=== PATIENT | male | born 1990 | race Caucasian/White ===

== ENCOUNTER 2018-09-27 01:08 | Emergency (ER) | payer OTHER, SELFPAY ==
[2018-09-27] MEDS ORDERED: KETOROLAC 30 MG/ML INJ ONE (01:56)
[2018-09-27] MEDS ORDERED: CYCLOBENZAPRINE 10 MG TAB ONE (01:56)
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
[2018-09-27 04:04] VITALS: TEMP 98.6
[2018-09-27 04:06] VITALS: BP 153/82; O2SAT 99
== END 2018-09-27 02:51 | disposition home or self-care (01) ==
LOC: ER 01:08
DX: M54.5 Low back pain (principal); V89.2XXA Person injured in unspecified motor-vehicle accident, traffic, initial encounter
CPT/HCPCS: 36415; 96372; 99284

== ENCOUNTER 2018-10-22 01:19 | Emergency (ER) | payer OTHER, SELFPAY ==
[2018-10-22] MEDS ORDERED: METOCLOPRAMIDE 10 MG/2mL INJ ONE (02:17)
[2018-10-22] MEDS ORDERED: DIPHENHYDRAMINE 50 MG/ML VIAL ONE (02:17)
[2018-10-22 02:23] LABS: Absolute Lymphocytes (CBC) 1.6 K/uL (0.7-4.9); Absolute Monocytes 0.7 K/uL (0.1-1.3); Absolute Neutrophil 9.4 K/uL (1.8-8.0); Basophils % 0.5 % (0-1.3); Eosinophils % 1.1 % (0-4.4); Hematocrit 46.3 % (39.6-49.0); Lymphocytes % 13.7 % (15.3-44.8); MPV 8.8 fL (7.6-11.3); Monocytes % 6.2 % (3.3-12.3); RBC Red Blood Cell Count 5.55 M/uL (4.33-5.43)
--- NOTE | 2018-10-22 03:08 | ER ---
Nurse's Notes [facility] Name: Gary Ruiz Age: 28 yrs Sex: Male : 1990 Arrival Date: 10/22/2018 Time: :19 Bed 5 Private MD: Diagnosis: Migraine Presentation: 10/22 01:26 Presenting complaint: Patient states: headache and vomiting since approx 1800 aa1 yesterday. Transition of care: patient was not received from another setting of care. Onset of symptoms was October 21, 2018 at 18:00. Risk Assessment: Do you want to hurt yourself or someone else? Patient reports no desire to harm self or others. Initial Sepsis Screen: Does the patient meet any 2 criteria? No. Patient's initial sepsis screen is negative. Does the patient have a suspected source of infection? No. Patient's initial sepsis screen is negative. Care prior to arrival: None. 01:26 Method Of Arrival: Ambulatory aa1 01:26 Acuity: COOPER 3 aa1 Triage Assessment: 01:27 General: Appears in no apparent distress. comfortable, Behavior is calm, cooperative, aa1 appropriate for age. 02:15 Headache History: The patient has had previous headaches and this one is similar to ed1 previous episodes, and this one is more severe than previous episodes. Pain: Also complains of nausea. Historical: - Allergies: 01:27 Trazodone; aa1 01:27 Adderall; aa1 - Home Meds: 01:27 None [Active]; aa1 - PMHx: 01:27 Anxiety; Bipolar disorder; lower back injury; Schizophrenia; aa1 - PSHx: 01:27 Appendectomy; aa1 - Immunization history:: Flu vaccine is up to date. - Social history:: Smoking status: Patient/guardian denies using tobacco. - Ebola Screening: : No symptoms or risks identified at this time. Screenin:15 Abuse screen: Denies threats or abuse. Denies injuries from another. Nutritional ed1 screening: No deficits noted. Tuberculosis screening: No symptoms or risk factors identified. Fall Risk None identified. Assessment: 02:15 General: Appears uncomfortable, Behavior is calm, cooperative. Pain: Complains of pain ed1 in forehead Pain does not radiate. Pain currently is 8 out of 10 on a pain scale. Quality of pain is described as throbbing, Pain began 1 day ago. Is continuous. Neuro: Level of Consciousness is awake, alert, obeys commands, Oriented to person, place, time, situation, Reports headache in entire frontal area. Cardiovascular: Denies chest pain, Heart tones S1 S2 present. Respiratory: Airway is patent Respiratory effort is even, unlabored, Respiratory pattern is regular, symmetrical, Breath sounds are clear bilaterally. GI: Reports nausea, Patient currently denies diarrhea, vomiting. : No signs and/or symptoms were reported regarding the genitourinary system. EENT: No signs and/or symptoms were reported regarding the EENT system. Derm: Skin is pink, warm \T\ dry. Musculoskeletal: Circulation, motion, and sensation intact. 03:20 Reassessment: Patient appears in no apparent distress at this time. Patient and/or ed1 family updated on plan of care and expected duration. Pain level reassessed. Patient is alert, oriented x 3, equal unlabored respirations, skin warm/dry/pink. Patient states feeling better. Patient states symptoms have improved. Vital Signs: 01:27 BP 141 / 83; Pulse 84; Resp 18; Temp 97.9; Pulse Ox 100% on R/A; Weight 63.5 kg; Height aa1 6 ft. 0 in. (182.88 cm); Pain 8/10; 03:20 BP 126 / 81; Pulse 80; Resp 17; Pulse Ox 100% on R/A; Pain 6/10; ed1 01:27 Body Mass Index 18.99 (63.50 kg, 182.88 cm) aa1 ED Course: 01:19 Patient arrived in ED. ds1 01:27 Triage completed. aa1 01:27 Arm band placed on right wrist. aa1 01:42 Gabriel Grimm PA is PHCP. jr8 01:42 Evelio Girard MD is Attending Physician. jr8 02:05 Quiana Archibald RN is Primary Nurse. ed1 02:15 Patient has correct armband on for positive identification. Placed in gown. Bed in low ed1 position. Call light in reach. Side rails up X2. Pulse ox on. NIBP on. 02:15 Initial lab(s) drawn, by me, sent to lab. Inserted saline lock: 20 gauge in right ed1 antecubital area, using aseptic technique. Blood collected. 02:[address] via wheelchair. kw1 02:45 CT Head Brain wo Cont In Process Unspecified. EDMS 02:45 CT completed. Patient tolerated procedure well. Patient moved back from CT. kw1 03:20 No provider procedures requiring assistance completed. IV discontinued, intact, ed1 bleeding controlled, No redness/swelling at site. Pressure dressing applied. Administered Medications: 02:18 Drug: Reglan 10 mg Route: IVP; Site: right antecubital; ed1 03:20 Follow up: Response: No adverse reaction; Nausea is decreased ed1 02:18 Drug: Benadryl 25 mg Route: IVP; Site: right antecubital; ed1 03:20 Follow up: Response: No adverse reaction; Marked relief of symptoms ed1 Outcome: 03:08 Discharge ordered by MD. palacios 03:20 Discharged to home ambulatory, with friend. ed1 03:20 Condition: good 03:20 Discharge instructions given to patient, Instructed on discharge instructions, follow up and referral plans. Demonstrated understanding of instructions, follow-up care. 03:21 Patient left the ED. ed1 Signatures: Dispatcher [employer] Tori Bui, RN RN aa1 Lesa Saini ds1 Quiana Archibald RN RN ed1 Gabriel Grimm PA PA jr8 Blanca Ku kw1
--- NOTE | 2018-10-22 03:08 | EDPHYS ---
Physician Documentation [facility] Name: Gary Ruiz Age: 28 yrs Sex: Male : 1990 Arrival Date: 10/22/2018 Time: :19 Bed 5 Private MD: ED Physician Evelio Girard HPI: 10/22 01:57 This 28 yrs old Male presents to ER via Ambulatory with complaints of jr8 Headache, Vomiting. 01:57 The patient complains of pain to the forehead. The patient describes the headache as jr8 throbbing. Onset: The symptoms/episode began/occurred acutely, today. Associated signs and symptoms: Pertinent positives: nausea, blurred vision, vomiting. Severity of symptoms: At its worst the pain was moderate, in the emergency department the pain is unchanged. Headache History: Denies prior headaches. The symptoms are alleviated by nothing. the symptoms are aggravated by nothing. The patient has not experienced similar symptoms in the past. The patient has not recently seen a physician. Historical: - Allergies: 01:27 Trazodone; aa1 01:27 Adderall; aa1 - Home Meds: 01:27 None [Active]; aa1 - PMHx: 01:27 Anxiety; Bipolar disorder; lower back injury; Schizophrenia; aa1 - PSHx: 01:27 Appendectomy; aa1 - Immunization history:: Flu vaccine is up to date. - Social history:: Smoking status: Patient/guardian denies using tobacco. - Ebola Screening: : No symptoms or risks identified at this time. ROS: 01:57 Eyes: Negative for injury, pain, redness, and discharge, ENT: Negative for injury, jr8 pain, and discharge, Neck: Negative for injury, pain, and swelling, Cardiovascular: Negative for chest pain, palpitations, and edema, Respiratory: Negative for shortness of breath, cough, wheezing, and pleuritic chest pain, Abdomen/GI: Negative for abdominal pain, nausea, vomiting, diarrhea, and constipation, Back: Negative for injury and pain, MS/Extremity: Negative for injury and deformity, Skin: Negative for injury, rash, and discoloration. 01:57 Neuro: Positive for headache, Negative for altered mental status, dizziness, gait disturbance, hearing loss, loss of consciousness, numbness, seizure activity, speech changes, syncope, near syncope, tingling, tinnitus, tremor, visual changes, weakness. Exam: 01:58 Eyes: Pupils equal round and reactive to light, extra-ocular motions intact. Lids and jr8 lashes normal. Conjunctiva and sclera are non-icteric and not injected. Cornea within normal limits. Periorbital areas with no swelling, redness, or edema. ENT: Nares patent. No nasal discharge, no septal abnormalities noted. Tympanic membranes are normal and external auditory canals are clear. Oropharynx with no redness, swelling, or masses, exudates, or evidence of obstruction, uvula midline. Mucous membranes moist. Neck: Trachea midline, no thyromegaly or masses palpated, and no cervical lymphadenopathy. Supple, full range of motion without nuchal rigidity, or vertebral point tenderness. No Meningismus. Cardiovascular: Regular rate and rhythm with a normal S1 and S2. No gallops, murmurs, or rubs. Normal PMI, no JVD. No pulse deficits. Respiratory: Lungs have equal breath sounds bilaterally, clear to auscultation and percussion. No rales, rhonchi or wheezes noted. No increased work of breathing, no retractions or nasal flaring. Abdomen/GI: Soft, non-tender, with normal bowel sounds. No distension or tympany. No guarding or rebound. No evidence of tenderness throughout. Back: No spinal tenderness. No costovertebral tenderness. Full range of motion. Skin: Warm, dry with normal turgor. Normal color with no rashes, no lesions, and no evidence of cellulitis. MS/ Extremity: Pulses equal, no cyanosis. Neurovascular intact. Full, normal range of motion. Neuro: Awake and alert, GCS 15, oriented to person, place, time, and situation. Cranial nerves II-XII grossly intact. Motor strength 5/5 in all extremities. Sensory grossly intact. Cerebellar exam normal. Normal gait. Vital Signs: 01:27 BP 141 / 83; Pulse 84; Resp 18; Temp 97.9; Pulse Ox 100% on R/A; Weight 63.5 kg; Height aa1 6 ft. 0 in. (182.88 cm); Pain 8/10; 03:20 BP 126 / 81; Pulse 80; Resp 17; Pulse Ox 100% on R/A; Pain 6/10; ed1 01:27 Body Mass Index 18.99 (63.50 kg, 182.88 cm) aa1 MDM: 01:42 Patient medically screened. jr8 03:07 Data reviewed: vital signs, nurses notes, lab test result(s), radiologic studies, CT jr8 scan. Data interpreted: Pulse oximetry: on room air is 100 %. Interpretation: normal. Counseling: I had a detailed discussion with the patient and/or guardian regarding: the historical points, exam findings, and any diagnostic results supporting the discharge/admit diagnosis, lab results, radiology results, the need for outpatient follow up, a family practitioner, to return to the emergency department if symptoms worsen or persist or if there are any questions or concerns that arise at home. Response to treatment: the patient's symptoms have markedly improved after treatment. 10/22 01:58 Order name: Basic Metabolic Panel; Complete Time: 02:32 jr8 10/22 01:58 Order name: CBC with Diff; Complete Time: 02:26 jr8 10/22 01:57 Order name: CT Head Brain wo Cont jr8 10/22 01:57 Order name: IV; Complete Time: 02:05 jr8 Administered Medications: 02:18 Drug: Reglan 10 mg Route: IVP; Site: right antecubital; ed1 03:20 Follow up: Response: No adverse reaction; Nausea is decreased ed1 02:18 Drug: Benadryl 25 mg Route: IVP; Site: right antecubital; ed1 03:20 Follow up: Response: No adverse reaction; Marked relief of symptoms ed1 Disposition: 03:30 Co-signature as Attending Physician, Evelio Girard MD I agree with the assessment and kdr plan of care. Disposition: 10/22/18 03:08 Discharged to Home. Impression: Migraine. - Condition is Stable. - Discharge Instructions: Migraine Headache. - Medication Reconciliation Form, Thank You Letter, Antibiotic Education, Prescription Opioid Use form. - Follow up: Private Physician; When: 2 - 3 days; Reason: Recheck today's complaints, Continuance of care, Re-evaluation by your physician. - Problem is new. - Symptoms have improved. Signatures: Dispatcher [employer] EDMS Tori Wing RN RN aa1 Evelio Girard MD MD kdr Riggs, Erika, RN RN ed1 Gabriel Grimm PA PA jr8 Corrections: (The following items were deleted from the chart) 03:21 03:08 10/22/2018 03:08 Discharged to Home. Impression: Migraine. Condition is Stable. ed1 Forms are Medication Reconciliation Form, Thank You Letter, Antibiotic Education, Prescription Opioid Use. Follow up: Private Physician; When: 2 - 3 days; Reason: Recheck today's complaints, Continuance of care, Re-evaluation by your physician. Problem is new. Symptoms have improved. jr8
[2018-10-22 03:48] VITALS: TEMP 97.9; O2SAT 100
[2018-10-22 03:50] VITALS: BP 126/81
--- NOTE | 2018-10-23 20:41 | RAD REPORT ---
EXAM DESCRIPTION: CT - Head Brain Wo Cont - 10/22/2018 3:03 am CLINICAL HISTORY: The patient is 28 years old and is Male; HEADACHE TECHNIQUE: Axial computed tomography images of the head/brain and cervical spine without intravenous contrast. S agittal and coronal reformatted images were created and reviewed. This CT exam was performed using on e or more of the following dose reduction techniques: Automated exposure control, adjustment of the m A and/or kV according to patient size, and/or use of iterative reconstruction technique. COMPARISON: No relevant prior studies available. FINDINGS: Brain: Unremarkable. The aguilar white matter differentiation is preserved. No hemorrhage. No significant white matter disease. No edema. No extra-axial fluid collections. Ventricles: Unremarkable. No ventriculomegaly. Bone/joints: No acute fracture. Soft tissues: Unremarkable. Sinuses: Unremarkable as visualized. No acute sinusitis. Mastoid air cells: Unremarkable as visualized. No mastoid effusion. IMPRESSION: No acute intracranial abnormality. Electronically signed by Loraine Olsen MD 10/22/2018 2:53 AM SENIOR ANALYTIC CONSULTANT Due to temporary technical issues with the PACS/Fluency reporting system, reports are being signed by the in house radiologist as a courtesy to ensure prompt reporting. The interpreting radiologist is f ully responsible for the content of the report.
== END 2018-10-22 03:21 | disposition home or self-care (01) ==
LOC: ER 01:19
DX: G43.909 Migraine, unspecified, not intractable, without status migrainosus (principal); Z88.5 Allergy status to narcotic agent; Z88.8 Allergy status to other drugs, medicaments and biological substances
CPT/HCPCS: 36415; 70450; 80048; 85025; 96374; 96375; 99284; J2765

== ENCOUNTER 2019-01-02 01:47 | Emergency (ER) | payer OTHER ==
--- NOTE | 2019-01-02 02:55 | EDPHYS ---
Physician Documentation [facility] Name: Gary Ruiz Age: 28 yrs Sex: Male : 1990 Arrival Date: 01/02/2019 Time: 01:56 Bed 16 Private MD: ED Physician Refugio Hardin HPI: 01/02 02:02 This 28 yrs old Male presents to ER via Wheelchair with complaints of Foot jmm Injury. 02:02 The patient presents with an injury, a puncture wound. Onset: The symptoms/episode jmm began/occurred acutely, today. Modifying factors: The symptoms are alleviated by elevating leg, the symptoms are aggravated by weight bearing. Patient hyperdorsiflexed his right foot and ankle walking up a hill. denies other injury. Historical: - Allergies: 02:00 Adderall; lp1 02:00 Trazodone; lp1 - Home Meds: 02:00 None [Active]; lp1 - PMHx: 02:00 Anxiety; Bipolar disorder; lower back injury; Schizophrenia; lp1 - PSHx: 02:00 Appendectomy; lp1 - Immunization history:: Adult Immunizations up to date. - Social history:: Smoking status: Patient/guardian denies using tobacco. - Ebola Screening: : No symptoms or risks identified at this time. ROS: 02:02 Constitutional: Negative for fever, chills, and weight loss, Eyes: Negative for injury, jmm pain, redness, and discharge, Cardiovascular: Negative for chest pain, palpitations, and edema, Respiratory: Negative for shortness of breath, cough, wheezing, and pleuritic chest pain. 02:02 MS/extremity: Positive for injury or acute deformity, pain. 02:02 All other systems are negative. Exam: 02:02 Constitutional: This is a well developed, well nourished patient who is awake, alert, jmm and in no acute distress. Head/Face: atraumatic. Eyes: EOMI, no conjunctival erythema appreciated ENT: Moist Mucus Membranes Neck: Trachea midline, Supple Chest/axilla: Normal chest wall appearance and motion. Cardiovascular: Regular rate and rhythm. No edema appreciated Respiratory: Normal respirations, no respiratory distress appreciated Abdomen/GI: Non distended, soft Skin: General appearance color normal 02:02 Musculoskeletal/extremity: pain on palpation of the right ant ankle, full dorsalis pulse, compartments are soft, NVI. 02:02 Skin: Appearance: Color: normal in color. 02:02 Neuro: Orientation: is normal, Mentation: is normal, Memory: is normal. 02:02 Psych: Behavior/mood is pleasant, cooperative. Vital Signs: 01:59 BP 146 / 82; Pulse 81; Resp 16; Temp 97.9(O); Pulse Ox 97% on R/A; Weight 63.5 kg; lp1 Height 6 ft. 0 in. (182.88 cm); Pain 7/10; 03:22 BP 127 / 88; Pulse 86; Resp 16; Pulse Ox 99% on R/A; jb4 01:59 Body Mass Index 18.99 (63.50 kg, 182.88 cm) lp1 MDM: 02:02 Patient medically screened. [facility] 02:54 Data reviewed: vital signs, nurses notes. Counseling: I had a detailed discussion with [facility] the patient and/or guardian regarding: the historical points, exam findings, and any diagnostic results supporting the discharge/admit diagnosis, radiology results, the need for outpatient follow up, to return to the emergency department if symptoms worsen or persist or if there are any questions or concerns that arise at home. ED course: Patient is advised to follow up with ortho for reevaluation. imaging studies do not appear to show fracture. . 01/02 02:03 Order name: Foot Right 3 View XRAY [facility] 01/02 02:03 Order name: Ankle Right 3 View XRAY [facility] 01/02 02:41 Order name: Dayne wrap-joint; Complete Time: 03:21 [facility] 01/02 02:41 Order name: Crutches; Complete Time: 03:21 [facility] Administered Medications: No medications were administered Disposition: 01/02/19 02:55 Discharged to Home. Impression: Other sprain of foot, Sprain of ankle. - Condition is Stable. - Discharge Instructions: Ankle Sprain. - Prescriptions for Ibuprofen 800 mg Oral Tablet - take 1 tablet by ORAL route every 8 hours As needed take with food; 30 tablet. - Medication Reconciliation Form, Thank You Letter, Antibiotic Education, Prescription Opioid Use, Work release form form. - Follow up: Govind Galindo MD; When: 2 - 3 days; Reason: Recheck today's complaints, Continuance of care, Re-evaluation by your physician. Addendum: 01/03/2019 07:23 Co-signature as Attending Physician, Refugio Hardin MD I agree with the assessment and t w4 plan of care. Signatures: Dispatcher [employer] EDMS Lance Cruz, WESLY JARRELL [facility] Connie Garcia, RN RN lp1 Bernardino Leong RN RN jb4 Refugio Hardin MD MD tw4 Corrections: (The following items were deleted from the chart) 01/02 02:55 02:55 01/02/2019 02:55 Discharged to Home. Impression: Other sprain of foot. Condition [facility] is Stable. Forms are Medication Reconciliation Form, Thank You Letter, Antibiotic Education, Prescription Opioid Use. Follow up: Dr. Govind Galindo; When: 2 - 3 days; Reason: Recheck today's complaints, Continuance of care, Re-evaluation by your physician. [facility] 03:24 02:55 01/02/2019 02:55 Discharged to Home. Impression: Other sprain of foot; Sprain of jb4 ankle. Condition is Stable. Forms are Medication Reconciliation Form, Thank You Letter, Antibiotic Education, Prescription Opioid Use. Follow up: Dr. Govind Galindo; When: 2 - 3 days; Reason: Recheck today's complaints, Continuance of care, Re-evaluation by your physician. [facility]
--- NOTE | 2019-01-02 02:55 | ER ---
Nurse's Notes [facility] Name: Gary Ruiz Age: 28 yrs Sex: Male : 1990 Arrival Date: 01/02/2019 Time: 01:56 Bed 16 Private MD: Diagnosis: Other sprain of foot;Sprain of ankle Presentation: 01/02 01:57 Presenting complaint: Patient states: "I stepped wrong while fishing and I think I tore lp1 a ligament in my foot"; States pain to top of right foot, unable to bear weight. Transition of care: patient was not received from another setting of care. Onset of symptoms was January 01, 2019 at 18:00. Risk Assessment: Do you want to hurt yourself or someone else? Patient reports no desire to harm self or others. Initial Sepsis Screen: Does the patient meet any 2 criteria? No. Patient's initial sepsis screen is negative. Does the patient have a suspected source of infection? No. Patient's initial sepsis screen is negative. Care prior to arrival: None. 01:57 Method Of Arrival: Wheelchair lp1 01:57 Acuity: COOPER 4 lp1 Historical: - Allergies: 02:00 Adderall; lp1 02:00 Trazodone; lp1 - Home Meds: 02:00 None [Active]; lp1 - PMHx: 02:00 Anxiety; Bipolar disorder; lower back injury; Schizophrenia; lp1 - PSHx: 02:00 Appendectomy; lp1 - Immunization history:: Adult Immunizations up to date. - Social history:: Smoking status: Patient/guardian denies using tobacco. - Ebola Screening: : No symptoms or risks identified at this time. Screenin:00 Abuse screen: Denies threats or abuse. Denies injuries from another. Nutritional lp1 screening: No deficits noted. Tuberculosis screening: No symptoms or risk factors identified. Fall Risk None identified. Assessment: 02:04 General: Appears in no apparent distress. uncomfortable, Behavior is calm, cooperative. jb4 Pain: Complains of pain in dorsum of right foot Pain radiates to arch of right foot Pain currently is 7 out of 10 on a pain scale. Quality of pain is described as stabbing, throbbing, Pain began 1 day ago. Is continuous. Neuro: Level of Consciousness is awake, alert, obeys commands, Oriented to person, place, time, situation. Cardiovascular: Patient's skin is warm and dry. Respiratory: Airway is patent Respiratory effort is even, unlabored, Respiratory pattern is regular, symmetrical. GI: No signs and/or symptoms were reported involving the gastrointestinal system. : No signs and/or symptoms were reported regarding the genitourinary system. EENT: No signs and/or symptoms were reported regarding the EENT system. Derm: Skin is intact, Skin is pink, warm \\T\\ dry. Musculoskeletal: Circulation, motion, and sensation intact. Range of motion: limited in right ankle. 03:22 Reassessment: Patient appears in no apparent distress at this time. Patient and/or jb4 family updated on plan of care and expected duration. Pain level reassessed. Patient is alert, oriented x 3, equal unlabored respirations, skin warm/dry/pink. Vital Signs: 01:59 BP 146 / 82; Pulse 81; Resp 16; Temp 97.9(O); Pulse Ox 97% on R/A; Weight 63.5 kg; lp1 Height 6 ft. 0 in. (182.88 cm); Pain 7/10; 03:22 BP 127 / 88; Pulse 86; Resp 16; Pulse Ox 99% on R/A; jb4 01:59 Body Mass Index 18.99 (63.50 kg, 182.88 cm) lp1 ED Course: 01:56 Patient arrived in ED. ds1 01:58 Lance Cruz PA is PHCP. jmm 01:58 Refugio Hardin MD is Attending Physician. jmm 01:59 Triage completed. lp1 01:59 Arm band placed on left wrist. lp1 02:01 Patient has correct armband on for positive identification. lp1 02:03 Bernardino Leong, RN is Primary Nurse. jb4 02:23 X-ray completed. Portable x-ray completed in exam room. Patient tolerated procedure kw well. 02:23 Foot Right 3 View XRAY In Process Unspecified. EDMS 02:23 Ankle Right 3 View XRAY In Process Unspecified. EDMS 02:55 Govind Galindo MD is Referral Physician. jm 03:22 No provider procedures requiring assistance completed. Patient did not have IV access jb4 during this emergency room visit. Crutch training done. Dayne wrap to right ankle. Administered Medications: No medications were administered Outcome: 02:55 Discharge ordered by . sunil 03:22 Discharged to home ambulatory, with crutches, with family. jb4 03:22 Condition: stable 03:22 Discharge instructions given to patient, family, Instructed on discharge instructions, follow up and referral plans. medication usage, Demonstrated understanding of instructions, follow-up care, medications, Prescriptions given X 1. 03:24 Patient left the ED. jb4 Signatures: Dispatcher [employer] EDMS Lance Cruz PA PA jmm Sanford, Demi ds1 Giovanna Dorsey Laura, RN RN lp1 Bernardino Leong, RN RN jb4
[2019-01-02 03:29] VITALS: TEMP 97.9
[2019-01-02 03:30] VITALS: BP 127/88; O2SAT 99
--- NOTE | 2019-01-02 07:07 | RAD REPORT ---
EXAM DESCRIPTION: RAD - Ankle Right 3 View - 01/02/2019 2:38 am CLINICAL HISTORY: Right foot and ankle pain, twisting injury COMPARISON: None. FINDINGS: No fracture identified. There is no dislocation or periosteal reaction. On the oblique vie w there is focal lucency in the medial tip of the fibula. This is potentially from a ligamentous avul alethea or tear. Ankle mortise is normal. No joint effusion seen. No joint space narrowing. No significa nt soft tissue swelling at the ankle joint. IMPRESSION: No fracture identified. A small lucency inferior tip of the fibula may be from ligament tear/avulsion.
--- NOTE | 2019-01-02 07:08 | RAD REPORT ---
EXAM DESCRIPTION: RAD - Foot Right 3 View - 01/02/2019 2:26 am CLINICAL HISTORY: Right foot and ankle pain, twisting injury, trauma COMPARISON: None. FINDINGS: No fracture, dislocation or periosteal reaction. No acute bone or joint finding identified . No significant soft tissue changes. No air or foreign body in the soft tissues. IMPRESSION: Negative right foot examination.
== END 2019-01-02 03:24 | disposition home or self-care (01) ==
LOC: ER 01:47
DX: S93.691A Other sprain of right foot, initial encounter (principal); S93.401A Sprain of unspecified ligament of right ankle, initial encounter; X58.XXXA Exposure to other specified factors, initial encounter; Y93.01 Activity, walking, marching and hiking; Y92.89 Other specified places as the place of occurrence of the external cause; Z88.5 Allergy status to narcotic agent; Z88.8 Allergy status to other drugs, medicaments and biological substances
CPT/HCPCS: 99283